=== PATIENT | female | born 1945 | race Caucasian/White ===

== ENCOUNTER → 2016-06-21 | Outpatient (CLI) | payer MEDICARE ==
[~2016-06-21] MED LIST: ALBU8.5H3 IH; ALEN70TA5 PO; ASPI81TA52 PO; ATEN-94 PO; CHOL500016 PO; CYAN10002 IJ; FEXO180T72 PO; ISOS60TA2 PO; LEVO500T34 PO; METO50TA10 PO; NITR0.4T8 SL; OMEP40CA6 PO; VENL75CA PO
--- NOTE | 2016-06-25 16:31 | DIREP ---
PROCEDURE: BONE DENSITY PERIPHERAL COMPARISON: [facility], CR, BONE DENSITY, 12/23/2013, 04:15 PM. INDICATIONS: OSTEOPOROSIS TECHNIQUE: A dual photon bone densitometry was performed. FINDINGS: The bone mineral density as measured from L1 through L4 is 0.923 g/ cm2. The standard deviation of the T-score is-2.2. The bone mineral density in the left femoral neck is 0.826 g/cm2. The standard deviation of the T-score is - 1.5. The bone mineral density in the right femoral neck is 0.841 g/cm2. The standard deviation of the T-score is -1.6. However, the bone mineral density in the left Wards triangle is 0.552 g/cm2. The standard deviation of the T-score is -2.8. Based upon these values, the patient likely has osteoporosis, because the Wards triangle is a more sensitive indicator of the bone mineral density. The 10-year FRAX probability is as follows: The patient has 2 percent chance of an insufficiency hip fracture over the next 10 years. The patient has a 9.9 percent chance of a major osteoporotic fracture over the next 10 years. CONCLUSION: 1. Osteoporosis. Bone mineral density as above. Dictated by: Foreign Huntre MD on 06/21/2016 at 02:31 PM Typed by: RIAN on 06/22/2016 at 02:47 PM D
== END | disposition home or self-care (01) ==
LOC: BD 13:38
PROVIDERS: ATTEND Physician Assistant Medical
DX: M81.0 Age-related osteoporosis without current pathological fracture (principal)
CPT/HCPCS: 77080

== ENCOUNTER → 2016-12-28 | Outpatient (CLI) | payer MEDICARE ==
[~2016-12-28] MED LIST changes: -ALBU8.5H3 IH; +ALBU8.5H7 IH; -LEVO500T34 PO; +LEVO500T51 PO; +METO-237 PO; -METO50TA10 PO; +NITR0.4T26 SL; -NITR0.4T8 SL
--- NOTE | 2016-12-28 18:41 | DIREP ---
PROCEDURE:MRI JOINT LOWER EXTREMITY-LT W/O COMPARISON:None. INDICATIONS:LEFT KNEE INSTABILITY, LEFT KNEE PAIN TECHNIQUE:A complete multi-planar MRI was performed. FINDINGS: The anterior and posterior cruciate ligaments are intact. The medial and fibular collateral ligaments are intact, as are the popliteus tendon, biceps femoris tendon and iliotibial band. The extensor mechanism is intact. The medial and lateral menisci appear intact. Articular cartilage appears relatively preserved within the medial and lateral femorotibial compartments. There is superficial cartilage irregularity along the lateral patellar facet with suspected focal full-thickness chondral fissure. No suspicious bone marrow edema to suggest fracture. Small joint effusion. No popliteal cyst. Edema and fluid signal within the inferior medial retinaculum, suggesting grade 2 sprain. Mild subcutaneous edema is also noted anterior to the proximal tibia. CONCLUSION: 1. Intact menisci, cruciate and collateral ligaments. Subtle irregularity of the patellar articular cartilage as above. Remainder of the articular cartilage appears relatively preserved for the patient's age. 2. Edema about the inferior medial retinaculum, suggesting grade 2 sprain. Please correlate for the site of reported pain. 3. Small joint effusion with mild subcutaneous edema anterior to the proximal tibia. Dictated by: Carmine Cormier M.D. On 12/28/2016 at 06:15 PM
== END | disposition home or self-care (01) ==
LOC: MRI 16:01
DX: M25.362 Other instability, left knee (principal); R60.0 Localized edema
CPT/HCPCS: 73721

== ENCOUNTER → 2017-01-01 | Outpatient (CLI) | payer MEDICARE ==
--- NOTE | 2017-01-01 13:52 | DIREP ---
PROCEDURE:US SOFT TISSUE COMPARISON:None. INDICATIONS:L98.9 DISORDER OF TISSUE TECHNIQUE:Sonography of the anterior left neck cervical soft tissue was performed using grayscale and color Doppler imaging about a site of palpable enlargement/abnormality. FINDINGS: MASSES:Juxtaposed between the internal jugular vein and carotid there is an approximately 1.2 x 2.7 x 3.0 cm hypervascular heterogenous mass that is not fixed per the hone operator. Findings are nonspecific, but may indicate carotid body tumor. Cannot exclude hematoma/pseudoaneurysm , suppurative lymph node, or atypical abscess. Recommend follow-up contrast enhanced MRI and MRA of the neck. FLUID COLLECTIONS:None. OTHER:Negative. CONCLUSION:Heterogenous mixed echogenicity mass with hypervascularity. 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 Differential considerations as above. Recommend contrast-enhanced MRI and MRA of the neck. Dictated by: Nicola Winters DO on 01/01/2017 at 01:47 PM
== END | disposition home or self-care (01) ==
LOC: RAD 13:00
PROVIDERS: ATTEND Surgery
DX: L98.9 Disorder of the skin and subcutaneous tissue, unspecified (principal); M79.89 Other specified soft tissue disorders
CPT/HCPCS: 76882

== ENCOUNTER → 2017-01-31 | Outpatient (CLI) | payer MEDICARE ==
--- NOTE | 2017-02-01 09:03 | DIREP ---
PROCEDURE:MRI NECK W&W/O COMPARISON:[facility], US, US SOFT TISSUE, 01/01/2017, 01:09 PM. INDICATIONS:LEFT UPPER NECK MASS TECHNIQUE:A variety of imaging planes and parameters were utilized for visualization of suspected pathology. Images were performed without and with intravenous gadolinium contrast. FINDINGS: NASOPHARYNX:Fossae of Rosenmuller and torus tubarius are symmetric. ORAL CAVITY:No visible mass. The base of the tongue is symmetric bilaterally. OROPHARYNX:No suspicious abnormality of the tonsillar soft tissues. HYPOPHARYNX:No appreciable mass or abnormal fluid collection. LARYNX:The vocal cords are symmetric and without appreciable mass. SINUSES:Minimal mucosal thickening within imaged maxillary sinuses bilaterally. NECK GLANDS:There is asymmetric enlargement and increased T2 signal within the left submandibular gland. This measures approximately 2.4 x 1.3 cm in AP and transverse dimensions, as compared to the contralateral normal appearing right submandibular gland which measures approximately 1.7 x 0.8 cm in AP and transverse dimensions at a similar level. The left submandibular gland measures approximately 4.1 cm in cranial caudal dimension while the right submandibular gland measures approximately 3.5 cm in craniocaudal dimension. The increased T2 signal is fairly homogeneous with fairly homogeneous subtle increased enhancement following contrast administration. The parotid glands are symmetric bilaterally. The thyroid gland appears grossly unremarkable. LYMPH NODES:No enlarged cervical lymph nodes appreciated. VASCULATURE:No gross abnormality. BONES:Mild degenerative changes of the cervical spine with posterior disc osteophyte complexes at C4-C5, C5-C6 and C6-C7. This does appear to result in at least mild spinal stenosis at C4-C5. OTHER:Apparent interstitial thickening and scarring within the imaged lung apices. Please note that the lungs are poorly evaluated by MRI. CONCLUSION: 1. Mild asymmetric enlargement and increased T2 signal within the left submandibular gland. There is associated subtle increased enhancement when compared to the contralateral right submandibular gland. The overall MR appearance is fairly symmetric, favoring inflammatory or potentially infectious etiology. Underlying mass would be considered less likely given the homogeneity. Please note that the heterogeneity seen on the previous ultrasound is less apparent by MR and may reflect interval improvement. Recommend continued sonographic follow-up to ensure complete resolution. No suspicious cervical lymphadenopathy. 2. Minimal mucosal thickening within the maxillary sinuses. 3. Additional findings as above. Dictated by: Carmine Cormier M.D. On 02/01/2017 at 08:25 AM
== END | disposition home or self-care (01) ==
LOC: MRI 14:31
PROVIDERS: ATTEND Surgery
DX: J32.0 Chronic maxillary sinusitis (principal); R22.1 Localized swelling, mass and lump, neck
CPT/HCPCS: 36415; 70543; 82565; A9579

== ENCOUNTER → 2017-02-01 | Outpatient (CLI) | payer MEDICARE ==
--- NOTE | 2017-02-03 10:38 | DIREP ---
PROCEDURE: MRA NECK W/CONTRAST COMPARISON: [facility], US, US SOFT TISSUE, 01/01/2017, 01:09 PM. [facility], MR, MRI ORBIT FACE & NECK W&W/O, 2016, 04:37 PM. INDICATIONS: neck mass TECHNIQUE: MR angiography was performed without and with intravenous gadolinium, yielding 3D reconstructed images of the carotid and vertebral arteries. FINDINGS: RIGHT CAROTID SYSTEM: The right common and imaged right internal carotid artery are widely patent. LEFT CAROTID SYSTEM: The left common and imaged left internal carotid artery are widely patent. VERTEBRAL ARTERIES: The vertebral arteries arise normally from the subclavian arteries bilaterally. Vertebral arteries appear widely patent bilaterally. ARCH: Standard 3 vessel aortic arch. OTHER: Please refer to the dedicated MRI of the neck. CONCLUSION: 1. Carotid and vertebral arteries are widely patent bilaterally. 2. Please refer to the dedicated MRI of the neck for findings regarding the soft tissues. Dictated by: Carmine Cormier M.D. On 02/01/2017 at 12:51 PM EALTHChristin
== END | disposition home or self-care (01) ==
LOC: RAD 10:10
PROVIDERS: ATTEND Surgery
DX: R22.1 Localized swelling, mass and lump, neck (principal); I77.89 Other specified disorders of arteries and arterioles
CPT/HCPCS: 70548; A9579

== ENCOUNTER → 2018-02-09 | Outpatient (CLI) | payer MEDICARE ==
--- NOTE | 2018-02-09 11:15 | DIREP ---
PROCEDURE:CT HEAD OR BRAIN W/O CONTRAST COMPARISON:None. INDICATIONS:DISEQUILIBRIUM TECHNIQUE:CT images were created without intravenous contrast. FINDINGS: VENTRICLES:The ventricles are normal in size and configuration. CEREBRUM:There are low-density changes in the periventricular white matter. CEREBELLUM:Negative. BRAINSTEM:Negative. BASAL CISTERNS:Negative. HEMORRHAGE:No MASS LESION:No ACUTE INFARCT:No SKULL:Normal. SINUSES:Normal. OTHER:None CONCLUSION: 1. No acute abnormalities. 2. Microvascular ischemic white matter changes. Dictated by: Vladislav Diaz M.D. on 02/09/2018 at 11:11 AM
--- NOTE | 2018-02-09 13:09 | DIREP ---
PROCEDURE:US DOPPLER CAROTID BILATERAL COMPARISON:US, US DOPPLER CAROTID BILATERAL, 01/12/2015, 04:49 PM. [facility], CT, CT HEAD BRAIN W/O CONTRAST, 02/09/2018, 10:50 AM. INDICATIONS:TIA TECHNIQUE:Sonographic evaluation of carotid arteries was performed together with grayscale, color-flow, and spectral analysis. FINDINGS: PEAK FLOW VELOCITIES (cm/sec) RIGHT CCA: PROX:52.6 cm/s DIST:32.8 cm/s RIGHT ICA: PROX:37.9 cm/s MID:36.6 cm/s DIST:44.1 cm/s RIGHT ECA:29.7 cm/s RIGHT ICA/CCA:1.3 RIGHT VERTEBRAL:41.4 cm/s; Antegrade IMAGES:There is noncalcified plaque. LEFT CCA: PROX:64.4 cm/s DIST:40.0 cm/s LEFT ICA: PROX:31.8 cm/s MID:68.6 cm/s DIST:54.9 cm/s LEFT ECA:34.3 cm/s LEFT ICA/CCA:1.7 LEFT VERTEBRAL:32.3 cm/s; Antegrade IMAGES:There is calcified irregular plaque. CONCLUSION:No hemodynamically significant stenosis of the right internal carotid artery. Critical 99% stenosis of the left internal carotid artery, may need correlation with CTA. Stable bilateral thyroid nodules. Diameter Stenosis (%)ICA Peak Systolic Velocity (cm/s)ICA/CCA RatioNormal<125<2.0<50<125<[id number]>2-470 to near occlusion>230>4J Ultrasound Med 2005; 24:2985-2387 Dictated by: LALA Physician on 02/09/2018 at 12:50 PM ld
== END | disposition home or self-care (01) ==
LOC: CT 10:32
DX: I65.22 Occlusion and stenosis of left carotid artery (principal); G93.89 Other specified disorders of brain; E87.8 Other disorders of electrolyte and fluid balance, not elsewhere classified; E04.2 Nontoxic multinodular goiter; Z86.73 Personal history of transient ischemic attack (TIA), and cerebral infarction without residual deficits
CPT/HCPCS: 70450; 93880

== ENCOUNTER → 2018-02-22 | Outpatient (CLI) | payer MEDICARE ==
[~2018-02-22] MED LIST changes: -ALEN70TA5 PO; +ALEN70TA6 PO
--- NOTE | 2018-02-22 17:15 | DIREP ---
PROCEDURE:CTA NECK COMPARISON:MR, MRA NECK W/CONTRAST, 02/01/2017, 11:39 AM. INDICATIONS:I65.22 OCCLUSION AND STENOSIS OF LEFT CAROTID ARTERY TECHNIQUE:After obtaining the patient's consent, CTA images of the neck were obtained without and with non-ionic intravenous contrast material. Multi-planar reformatted/3-D images were created to optimize visualization of vascular anatomy. FINDINGS: AORTIC ARCH:Scattered atherosclerotic plaque with no hemodynamically significant stenosis.. RIGHT CAROTID SYSTEM:Unremarkable. LEFT CAROTID SYSTEM:Unremarkable. VERTEBRAL ARTERIES: Unremarkable. NECK TISSUES:Unremarkable. LUNGS:Unremarkable. MEDIASTINUM:Unremarkable. BONE:Fluid levels in the right and left maxillary sinuses and mild mucosal thickening in the maxillary and ethmoid sinuses bilaterally. In the proper clinical setting, these findings could represent acute sinusitis. CONCLUSION: 1. Normal CT angiography of the neck and head. No hemodynamically significant stenosis. 2. Mild mucosal thickening in the ethmoid and maxillary sinuses bilaterally with fluid levels in the maxillary sinuses bilaterally. In the proper clinical setting, this could represent acute sinusitis. 3. Scattered atherosclerotic plaque in the visualized aortic arch with no hemodynamically significant stenosis. Dictated by: Avinash Reyes M.D. on 02/22/2018 at 05:08 PM
== END | disposition home or self-care (01) ==
LOC: RAD 14:25
DX: I70.0 Atherosclerosis of aorta (principal)
CPT/HCPCS: 36415; 70498; 82565; Q9965

== ENCOUNTER → 2020-04-20 | Outpatient (CLI) | payer MEDICARE ==
[~2020-04-20] MED LIST changes: -ALEN70TA6 PO; +ALEN70TA76 PO; -ISOS60TA2 PO; +ISOS60TA57 PO; +OMEP40CA41 PO; -OMEP40CA6 PO
[2020-04-20] MEDS: LEXISCAN IV ONE (15:00)
--- NOTE | 2020-04-20 22:11 | STRESS ---
DATE OF SERVICE: 04/20/2020 INDICATION: Chest pain. Baseline EKG shows normal sinus rhythm with poor R-wave progression and nonspecific ST-T wave changes. Stress EKG shows sinus tachycardia, unchanged from baseline. At the end of recovery, EKG shows sinus tachycardia, unchanged from baseline. Baseline blood pressure is 155/100 and remained the same during stress. At recovery, the blood pressure is 151/101. Baseline heart rate is 88 beats per minute, but cora to 107 beats per minute during stress. At the end of recovery, the heart rate is noted to be 101 beats per minute. Blood pressure and heart rate are appropriate for stress. There were no significant symptoms noted during stress. There were no arrhythmias noted during stress. EKG portion of stress test is negative for myocardial ischemia. Nuclear images reveal homogeneous tracer distribution across all wall segments with no evidence of myocardial ischemia or infarction. Nuclear images were obtained with the rest dose of 9.89 mCi technetium 99 sestamibi and a stress dose of 32.6 mCi technetium 99 sestamibi. Left ventricular ejection fraction is noted to be 80%. EDV is 11 mL, ESV is 2 mL. The left ventricle is normal in size. Gated motion images shows normal wall motion across all segments of the left ventricle. TID is 1.46. There is no evidence of diaphragmatic attenuation artifact. IMPRESSION: 1. Normal myocardial perfusion imaging with no evidence of myocardial ischemia or infarction. 2. Left ventricular ejection fraction of 80%. 3. This is a negative study. ROCÍO CASTELLANOS D.O. DR: BO/juanita JOB# [id number]
== END | disposition home or self-care (01) ==
LOC: RAD 10:19
PROVIDERS: ATTEND Internal Medicine Interventional Cardiology
DX: R00.0 Tachycardia, unspecified (principal); R07.9 Chest pain, unspecified
CPT/HCPCS: 78452; 93017; A9500; J2785

== ENCOUNTER → 2020-04-27 | Outpatient (CLI) | payer MEDICARE ==
--- NOTE | 2020-04-27 21:28 | PRP ---
DATE OF PROCEDURE: 04/27/2020 ARTERIAL DOPPLER ULTRASOUND INDICATION FOR PROCEDURE: Intermittent claudication. RIGHT LOWER EXTREMITY: The right common femoral artery has a peak systolic velocity of 88 cm/sec with triphasic waveforms. The right profunda femoris artery has a peak systolic velocity of 35 cm/sec with biphasic waveforms. Biphasic waveforms are visualized in the right superficial femoral artery, the right popliteal artery and the right posterior tibial artery. The maximum peak systolic velocity of the right SFA is noted to be 53 cm/sec. The maximum peak systolic velocity of the right popliteal artery is 51 cm/sec. The maximum peak systolic velocity of the right posterior tibial artery 68 cm/sec. The right anterior tibial artery has a peak systolic velocity of 71 cm/sec with biphasic waveforms seen in the proximal and distal segments and triphasic waveforms seen in the mid segment. The right lower extremity ankle-brachial index is 1.1. LEFT LOWER EXTREMITY: The left common femoral artery has biphasic waveforms with a peak systolic velocity of 86 cm/sec. The left profunda femoris artery has monophasic waveforms with a peak systolic velocity of 84 cm/sec. The left SFA has triphasic waveforms in the proximal and mid segment and biphasic waveform in the distal segment with a peak systolic velocity of 69 cm/sec. The left popliteal artery has triphasic waveforms in the proximal segment and biphasic waveform in the distal segment with a peak systolic velocity of 50 cm/sec. Biphasic waveform is visualized in the left posterior tibial artery as well as the left anterior tibial artery. Maximum peak systolic velocity of the left posterior tibial artery is 74 cm/sec and that of the left anterior tibial artery is 65 cm/sec. The left lower extremity ankle-brachial index is 1.1. IMPRESSION: 1. There is no evidence of hemodynamically significant stenosis in the right lower extremity. 2. There is no evidence of hemodynamically significant stenosis in the left lower extremity. 3. Bilateral ABIs are noted above. ROCÍO CASTELLANOS D.O. DR: BO/juanita JOB# [id number]
== END | disposition home or self-care (01) ==
LOC: RAD 14:07
PROVIDERS: ATTEND Internal Medicine Interventional Cardiology
DX: I70.213 Atherosclerosis of native arteries of extremities with intermittent claudication, bilateral legs (principal)
CPT/HCPCS: 93922; 93925

== ENCOUNTER → 2020-04-30 | Outpatient (CLI) | payer MEDICARE ==
--- NOTE | 2020-04-30 19:39 | PCM.ECHO ---
APPROVED REPORT EXAM: Comprehensive 2D, Doppler, and color-flow Echocardiogram. Patient Location: OUT-PATIENT Indications Dizziness and Vertigo Dizziness & giddiness 2D Dimensions LVOT Diameter 2.18 (1.8-2.4cm) LVEF(%) 53.03 (>50%) M-Mode Dimensions RVDd 0.60 (2.1-3.2cm) Left Atrium(MM) 3.15 (2.5-4.0cm) IVSd 0.70 (0.7-1.1cm) Aortic Root 2.65 (2.2-3.7cm) LVDd 5.15 (4.0-5.6cm) Aortic Cusp Exc 1.85 (1.5-2.0cm) PWd 0.45 (0.7-1.1cm) MV EPSS 1.95 (<0.5cm) IVSs 1.20 cm FS (%) 37.25 % LVDs 3.20 (2.0-3.8cm) ESV(Teich) 42.08 ml PWs 1.05 cm LVEF(%) 66.89 (>50%) Volumes Biplane 2D LV Volumes Biplane 2D LA Volumes LVEDv A4C 56.56 mL LA ESV Index LVESv A4C 26.57 mL Aortic Valve AoV Peak Kasi. 0.90 m/s AoV VTI 17.80 cm AO Peak GR. 3.20 mmHg AO Mean GR. 2.05 mmHg LVOT VTI 23.24 cm LVOT Peak Kasi. 0.82 m/s ALBERTINA(VTI)/BSA 4.88 cm2/m2 ALBERTINA (VTI) 4.88 cm2 Mitral Valve MV E Velocity 0.85m/s MR Peak Gr. 17.35mmHg MV A Velocity 1.00m/s TDI Lateral E' P. V 0.08m/s Medial E' P. V 0.06m/s Pulmonary Valve PV Peak Velocity 0.85m/s PV Peak Grad. 2.85mmHg RVOT VTI 14.16cm Tricuspid Valve TR P. Velocity 1.90m/s RAP ESTIMATE 10.00mmHg TR Peak Gr. 14.65mmHg RVSP 24.65mmHg LEFT VENTRICLE The left ventricle is normal size. The left ventricular systolic function is normal. The left ventricular ejection fraction is within the normal range. There is normal left ventricular wall thickness. There is normal LV segmental wall motion. There is no ventricular septal defect visualized. No left ventricle thrombus noted on this study. LVEF is 65-70%. RIGHT VENTRICLE The right ventricle is normal size. The right ventricular systolic function is normal. There is normal right ventricular wall thickness. ATRIA The left atrium size is normal. The right atrium size is normal. The interatrial septum is intact with no evidence for an atrial septal defect. AORTIC VALVE The aortic valve is normal in structure. There is no aortic valvular stenosis. Mild aortic regurgitation. There is no aortic valvular vegetation. MITRAL VALVE The mitral valve is normal in structure. There is no mitral valve stenosis. Mild mitral regurgitation. There is no evidence of mitral valve vegetations. TRICUSPID VALVE The tricuspid valve is normal in structure. There is no tricuspid valve stenosis. Mild tricuspid regurgitation. PULMONIC VALVE Pulmonic valve is not well visualized. There is no pulmonic valvular stenosis. There is no pulmonic valvular regurgitation. GREAT VESSELS The aortic root is normal in size. Pulmonary artery is not well visualized. Aortic arch is not well visualized. IVC is normal in size. PERICARDIUM There is no pericardial effusion. There is no pleural effusion. Other Information Study Quality: Fair <Conclusion> The left ventricular systolic function is normal. LVEF is 65-70%. Mild aortic regurgitation. Mild mitral regurgitation. Mild tricuspid regurgitation. Electronically signed by : ROCÍO CASTELLANOS. 04/30/2020 19:39:01
== END | disposition home or self-care (01) ==
LOC: RT 13:20
PROVIDERS: ATTEND Internal Medicine Interventional Cardiology
DX: I08.3 Combined rheumatic disorders of mitral, aortic and tricuspid valves (principal); R42 Dizziness and giddiness; Q25.49 Other congenital malformations of aorta
CPT/HCPCS: 93306

== ENCOUNTER → 2020-09-15 | Outpatient (CLI) | payer MEDICARE ==
[~2020-09-15] MED LIST changes: -OMEP40CA41 PO; +OMEP40CA8 PO
--- NOTE | 2020-09-15 19:32 | DIREP ---
PROCEDURE:CT SOFT TISSUE NECK W/CONTRAST COMPARISON:None. INDICATIONS:R22.1 MASS, LUMP OR SWELLING LOCAL SUPRFICIAL SWEELING TECHNIQUE:CT images were created with intravenous contrast material. Sagittal and coronal reconstructions are performed. FINDINGS: NASOPHARYNX:Normal. Fossae of Rosenmuller and torus tubarius are symmetric. ORAL CAVITY:Normal. No visible mass. OROPHARYNX:Normal. Faucial and lingual tonsils are symmetric. HYPOPHARYNX:Normal. No mass or other visible lesion. LARYNX:Normal. The vocal cords are symmetric and without mass. SINUSES:Normal. Limited views show no significant fluid or mucosal thickening. NECK GLANDS:Asymmetry of the submandibular glands with the left gland larger than the right. There are no stones seen within the left submandibular gland or in the expected course of Alex's duct. LYMPH NODES:Normal. No pathological-appearing or enlarged lymph nodes. SKULL BASE:Normal. Foramina are symmetric without bony erosion. VASCULATURE:Arterial calcifications. BONES:Disc narrowing C5-6 with anterior osteophyte formation at this level. OTHER:Centrilobular and paraseptal emphysema. CONCLUSION: 1. Asymmetry of the submandibular glands with left gland larger than the right. Sialadenitis cannot be excluded. There are no stones identified. 2. Centrilobular and paraseptal emphysema. Dictated by: Rafael Farah M.D. on 09/15/2020 at 07:25 PM
== END | disposition home or self-care (01) ==
LOC: RAD 11:24
PROVIDERS: ATTEND Surgery
DX: K11.8 Other diseases of salivary glands (principal); R22.1 Localized swelling, mass and lump, neck; J43.2 Centrilobular emphysema; J43.8 Other emphysema; M48.02 Spinal stenosis, cervical region; M25.78 Osteophyte, vertebrae
CPT/HCPCS: 36415; 70491; 82565; Q9965

== ENCOUNTER → 2020-10-08 | Outpatient (CLI) | payer MEDICARE ==
--- NOTE | 2020-10-08 21:13 | DIREP ---
PROCEDURE:CT CHEST ABDOMEN PELVIS W/CONTRAST COMPARISON:[facility], CT, CT ABD/PELVIS W/ CONTRAST, 08/08/2018, 09:51 AM. [facility], CT, CT-CHEST W/O CONTRAST, 12/23/2013, 04:20 PM. INDICATIONS:UNINTENTIONAL WEIGHT LOSS, COPD, CHRONIC DIARRHEA TECHNIQUE:Axial images were obtained through the chest, abdomen and pelvis during the IV administration of nonionic contrast. No oral contrast was administered. Sagittal and coronal reconstructions were performed from source images. FINDINGS: LUNGS:Severe changes of centrilobular emphysema greatest in the apices. PLEURA:Normal. No mass or effusion. CARDIAC:Overall heart size within normal limits. Coronary artery calcifications. MEDIASTINUM/LIANET:Normal. No mass or adenopathy. CHEST WALL:Normal. No mass or axillary adenopathy. LIVER:There is focally diminished hepatic attenuation adjacent to the falciform ligament typical for focal fatty infiltration. BILIARY:The gallbladder is surgically absent. There is no biliary ductal dilatation. PANCREAS:Normal. No lesion, fluid collection, ductal dilatation, or atrophy. SPLEEN:Normal. No enlargement or focal lesion. ADRENALS:Normal. No mass or enlargement. URINARY TRACT:4 cm simple cyst upper pole right kidney. There are additional tiny cysts scattered throughout both kidneys. 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 The aneurysm at the aortic bifurcation measures approximately 3.2 cm in AP dimension and 3.4 cm in transverse dimension. There is prominent soft plaque and wall calcifications along this portion of the aorta. This has increased in size since previous CT 08/08/2018. RETROPERITONEUM:Normal. No mass or adenopathy. BOWEL/MESENTERY:There appears to be wall thickening of the gastric cardia, consider EGD to exclude underlying mass. No bowel obstruction, free fluid or free air. Diverticulosis of the sigmoid colon without acute diverticulitis. ABDOMINAL WALL:Normal. No mass or hernia. PELVIC ORGANS:Uterus is not visible. Correlate with previous surgeries. BONES:Normal for age. No bony lesion or acute fracture. OTHER:Negative. CONCLUSION: 1. Severe emphysema in the lungs. 2. Wall thickening of the gastric cardia suspicious for mass however differential includes poor distention versus gastritis. Recommend direct visualization. 3. Bilateral renal cysts. 4. Diverticulosis of the colon without acute diverticulitis. 4. 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 Dictated by: Kofi Camarillo M.D. on 10/08/2020 at 09:02 PM
== END | disposition home or self-care (01) ==
LOC: RAD 10:32
PROVIDERS: ATTEND Physician Assistant
DX: J43.2 Centrilobular emphysema (principal); I25.10 Atherosclerotic heart disease of native coronary artery without angina pectoris; N28.1 Cyst of kidney, acquired; I70.0 Atherosclerosis of aorta; Z90.49 Acquired absence of other specified parts of digestive tract
CPT/HCPCS: 71260; 74177; Q9965

== ENCOUNTER 2021-03-11 08:35 | Day surgery (SDC) | payer MEDICARE ==
[2021-03-10 16:02] VITALS: BP 118/76
--- NOTE | 2021-03-10 16:31 | PCM.EKG ---
[facility] Test Date: 2021-03-10 Test Time: 16:29:18 Pat Name: NOHEMI POTTS Department: Room: Gender: F Cooperer: TACOS FINLEY : 1945 Requested By: ROCÍO CASTELLANOS Order Number: [id number] Reading MD: Measurements Intervals [place] Rate: 70 P: 42 W[place]: 136 QRS: 68 QRSD: 78 T: 75 QT: 410 QTc: 442 Interpretive Statements Normal sinus rhythm No previous ECG available for comparison Please click the below link to view image of tracing.
[2021-03-10 16:46] LABS: BASOPHIL # 0.1 10^3/uL (0.0-0.1); BASOPHIL % 0.9 % (0.0-0.2); EOSINOPHIL # 0.4 10^3/uL (0.0-0.2); EOSINOPHIL % 6.2 % (0.0-5.0); LYMPHOCYTES # 2.16 10^3/uL1 (1.0-4.8); LYMPHOCYTES % 31.9 % (24.0-44.0); MEAN CORP HGB 30.3 pg (26-34); MONOCYTES # 0.6 10^3/uL (0.3-0.8); MONOCYTES % 8.4 % (5.0-12.0); NEUTROPHIL # 3.6 10^3/uL (1.8-7.7); NEUTROPHILS % 52.5 % (41.0-85.0); PLATELET COUNT 387 10^3/uL (150-400); RED CELL DISTRIBUTION WIDTH 13.1 % (11.5-14.5)
[2021-03-10 17:03] LABS: CARBON DIOXIDE 25.7 mmol/L (20.0-32)
[~2021-03-11] VITALS: Ht 167.6 cm; Wt 59.0 kg
[~2021-03-11 08:35] MED LIST changes: +ASPI325T14 PO; +BUDE0.25 NEB; +BUSP15TA PO; +GABA100C7 PO; +IPRA3AMP25 IH; +LISI40TA10 PO; +LORA-448 PO; +MECL-95 PO; +MELO7.5T31 PO; +METO10TA83 PO; +NS 1000ML 1,000 ML IV SCH; +NS 1000ML 1,000 ML ONE; +POTA20TA89 PO; +SUBLIMAZE ONE; +VERSED ONE
[2021-03-11 14:48] VITALS: BP 137/85
[2021-03-11 17:45] VITALS: BP 122/76
[2021-03-11 18:00] VITALS: BP 165/71
[2021-03-11 18:15] VITALS: BP 124/81
[2021-03-11 18:30] VITALS: BP 134/83
--- NOTE | 2021-03-11 23:28 | CCLR ---
DATE OF PROCEDURE: 03/11/2021 DICTATOR NAME: ROCÍO CASTELLANOS PROCEDURE PERFORMED: Bi[employer]ik BioMonitor III insertable equipment monitor phototypesetting implantation. INDICATIONS: 1. Cryptogenic stroke. 2. Persistent palpitations. 3. Dizziness/giddiness. 4. Acute ischemic stroke. 5. Personal history of cerebral infarction. PROCEDURE IN DETAIL: The risks, benefits and alternatives of the procedure have been explained to the patient in great detail. The patient wishes to proceed with the procedure. The patient was brought to the cardiac catheterization lab. After sterile preparation and draping, the left pectoral region was anesthetized using approximately 10 mL of 2% lidocaine. An incision was made at the 3rd-4th intercostal space using the blade. A small pocket was created with the implant tool approximately 8 mm under the skin. The FIT OneStep tool was inserted and the BioMonitor III insertable equipment monitor phototypesetting was implanted. Hemostasis was achieved using Dermabond and Steri-Strips. The patient tolerated the procedure well and there were no complications. IMPRESSION: Successful implantation of the Biotronik BioMonitor III insertable equipment monitor phototypesetting. RECOMMENDATIONS: The patient will be discharged home today to follow up with me in the clinic in 2-3 weeks. Bib LEGER D.O. DR: NICOLASA TID: [id number] RECEIPT: [id number]
== END 2021-03-11 18:40 | disposition home or self-care (01) ==
LOC: CCL 08:35
PROVIDERS: ATTEND Internal Medicine Interventional Cardiology
DX: I63.89 Other cerebral infarction (principal); R42 Dizziness and giddiness; R00.2 Palpitations; I25.10 Atherosclerotic heart disease of native coronary artery without angina pectoris; J44.9 Chronic obstructive pulmonary disease, unspecified; I10 Essential (primary) hypertension; E78.2 Mixed hyperlipidemia; F17.210 Nicotine dependence, cigarettes, uncomplicated; F32.9 Major depressive disorder, single episode, unspecified; E78.00 Pure hypercholesterolemia, unspecified; M81.0 Age-related osteoporosis without current pathological fracture; Z79.899 Other long term (current) drug therapy; Z79.01 Long term (current) use of anticoagulants; Z98.890 Other specified postprocedural states; Z82.49 Family history of ischemic heart disease and other diseases of the circulatory system; Z95.5 Presence of coronary angioplasty implant and graft
CPT/HCPCS: 33285; 36415; 80053; 85025; 85610; 85730; 93005; 99152; C1764; J2250; J3010; J7030

== ENCOUNTER → 2021-10-21 | Outpatient (CLI) | payer MEDICARE ==
[~2021-10-21] MED LIST changes: -NS 1000ML 1,000 ML IV SCH; -NS 1000ML 1,000 ML ONE; -SUBLIMAZE ONE; -VERSED ONE
--- NOTE | 2021-10-22 01:44 | PRP ---
DATE OF PROCEDURE: 10/21/2021 DICTATOR NAME: ROCÍO CASTELLANOS DO ARTERIAL DOPPLER ULTRASOUND INDICATION: Intermittent claudication, right lower extremity. FINDINGS: The right common femoral artery has a peak systolic velocity of 81.6 cm per second. Triphasic waveforms are visualized in the right common femoral artery. The right profunda femoris artery has a peak systolic velocity of 74 cm per second with monophasic waveforms seen. The right superficial femoral artery has biphasic waveforms with a peak systolic velocity of 45 cm per second. The right popliteal artery has biphasic waveforms with a peak systolic velocity of 40 cm per second. The right posterior tibial artery has biphasic waveforms with a peak systolic velocity of 45 cm per second. The right anterior tibial artery has biphasic waveforms with a peak systolic velocity of 20 cm per second. The right lower extremity ankle-brachial index is 1.0. Left lower extremity, the left common femoral artery has a peak systolic velocity of 86 cm per second with biphasic waveforms seen. The left profunda femoris artery has biphasic waveforms with a peak systolic velocity of 36.9 cm per second. The left superficial femoral artery has biphasic waveforms with a peak systolic velocity of 46 cm per second. The left popliteal artery has biphasic waveforms with a peak systolic velocity of 51 cm per second. The left posterior tibial artery has biphasic waveforms with a peak systolic velocity of 38.5 cm per second. The left anterior tibial artery has biphasic waveforms with a peak systolic velocity of 43 cm per second. The left lower extremity ankle-brachial index is 1.0. IMPRESSION: 1. There is no evidence of hemodynamically significant stenosis in the right lower extremity. 2. There is no evidence of hemodynamically significant stenosis in the left lower extremity. 3. Bilateral ABIs are within normal limits. Bib LEGER D.O. DR: PRISCILA SILVA: [id number] RECEIPT: [id number]
--- NOTE | 2021-10-22 01:50 | PRP ---
DATE OF PROCEDURE: 10/21/2021 DICTATOR NAME: ROCÍO CASTELLANOS DO VENOUS MAPPING ULTRASOUND INDICATION: Chronic venous insufficiency. RIGHT LOWER EXTREMITY: There is no evidence of significant reflux noted in the right greater saphenous vein or the right small saphenous vein. Both his GSV and SSV are normal sized. There is no evidence of deep venous thrombosis in the right lower extremity. LEFT LOWER EXTREMITY: There is no evidence of significant reflux noted in the left GSV or left SSV. Both the left GSV and SSV are normal sized. There is no evidence of deep venous thrombosis noted. IMPRESSION: 1. The bilateral SSV is normal-sized and does not show significant reflux. 2. The bilateral GSV is normal-sized and does not show significant reflux. 3. There is no evidence of deep venous thrombosis in the bilateral lower extremities. Bib LEGER D.O. DR: PRISCILA TID: [id number] RECEIPT: [id number]
== END | disposition home or self-care (01) ==
LOC: RAD 12:46
PROVIDERS: ATTEND Nurse Practitioner Family
DX: I70.213 Atherosclerosis of native arteries of extremities with intermittent claudication, bilateral legs (principal); I87.2 Venous insufficiency (chronic) (peripheral)
CPT/HCPCS: 93922; 93925; 93970

== ENCOUNTER → 2022-01-03 | Outpatient (CLI) | payer MEDICARE ==
[~2022-01-03] MED LIST changes: +ATOR40TA PO; +DULO60CA8 PO; +GABA300C PO; +METO25TA4 PO; +MIRT-13 PO; +PANT40TA3 PO; +VITAMIN D PO
--- NOTE | 2022-01-03 21:07 | PCM.ECHO ---
APPROVED REPORT EXAM: Comprehensive 2D, Doppler, and color-flow Echocardiogram. Patient Location: OUT-PATIENT Indications Pre-Op Cardiac clearance 2D Dimensions LVOT Diameter 2.01 (1.8-2.4cm) LVEF(%) 60.49 (>50%) M-Mode Dimensions RVDd 2.05 (2.1-3.2cm) Left Atrium(MM) 2.95 (2.5-4.0cm) IVSd 1.00 (0.7-1.1cm) Aortic Root 2.25 (2.2-3.7cm) LVDd 3.05 (4.0-5.6cm) Aortic Cusp Exc 1.85 (1.5-2.0cm) PWd 0.80 (0.7-1.1cm) MV EPSS 0.79 (<0.5cm) IVSs 1.60 cm FS (%) 26.65 % LVDs 2.25 (2.0-3.8cm) ESV(Teich) 17.44 ml PWs 1.00 cm LVEF(%) 53.60 (>50%) Volumes Biplane 2D LV Volumes Biplane 2D LA Volumes LVEDv A4C 48.43 mL LA ESV Index LVESv A4C 19.14 mL Aortic Valve AoV Peak Kasi. 0.90 m/s AoV VTI 20.75 cm AO Peak GR. 3.25 mmHg AO Mean GR. 2.30 mmHg LVOT VTI 18.00 cm LVOT Peak Kasi. 0.78 m/s ALBERTINA(VTI)/BSA 2.74 cm2/m2 ALBERTINA (VTI) 2.74 cm2 Mitral Valve MV E Velocity 0.65m/s MR Peak Gr. 16.65mmHg MV A Velocity 0.90m/s TDI Lateral E' P. V 0.05m/s Medial E' P. V 0.07m/s Pulmonary Valve PV Peak Velocity 0.70m/s PV Peak Grad. 2.10mmHg RVOT VTI 15.00cm Tricuspid Valve TR P. Velocity 2.25m/s RAP ESTIMATE 10.00mmHg TR Peak Gr. 20.77mmHg RVSP 30.77mmHg LEFT VENTRICLE The left ventricle is normal size. The left ventricular systolic function is normal. The left ventricular ejection fraction is within the normal range. There is normal left ventricular wall thickness. There is normal LV segmental wall motion. Stage 1 diastolic dysfunction is present (impaired relaxation pattern). There is no ventricular septal defect visualized. No left ventricle thrombus noted on this study. LVEF is 65-70%. RIGHT VENTRICLE The right ventricle is normal size. The right ventricular systolic function is normal. There is normal right ventricular wall thickness. ATRIA The left atrium size is normal. The right atrium size is normal. The interatrial septum is intact with no evidence for an atrial septal defect. AORTIC VALVE The aortic valve is normal in structure. There is no aortic valvular stenosis. Mild aortic regurgitation. There is no aortic valvular vegetation. MITRAL VALVE The mitral valve is normal in structure. There is no mitral valve stenosis. Mild mitral regurgitation. There is no evidence of mitral valve vegetations. TRICUSPID VALVE The tricuspid valve is normal in structure. There is no tricuspid valve stenosis. Mild to moderate tricuspid regurgitation. There is no tricuspid valve vegetations. PULMONIC VALVE Pulmonic valve is not well visualized. There is no pulmonic valvular stenosis. There is no pulmonic valvular regurgitation. GREAT VESSELS The aortic root is normal in size. Pulmonary artery is not well visualized. Aortic arch is not well visualized. The IVC is normal in size and collapses >50% with inspiration. PERICARDIUM There is no pericardial effusion. There is no pleural effusion. Other Information Study Quality: Fair <Conclusion> The left ventricular systolic function is normal. LVEF is 65-70%. Mild aortic regurgitation. Mild mitral regurgitation. Mild to moderate tricuspid regurgitation. Electronically signed by : ROCÍO CASTELLANOS. 01/03/2022 21:06:26
== END | disposition home or self-care (01) ==
LOC: RAD 12-21 11:14
PROVIDERS: ATTEND Internal Medicine Interventional Cardiology
DX: Z01.818 Encounter for other preprocedural examination (principal); I08.3 Combined rheumatic disorders of mitral, aortic and tricuspid valves
CPT/HCPCS: 93306

== ENCOUNTER 2022-01-20 07:55 | Day surgery (SDC) | payer MEDICARE ==
[2022-01-17 15:20] VITALS: BP 115/88
[2022-01-17 16:46] LABS: MEAN CORP HGB 29.5 pg (26-34); PLATELET COUNT 375 10^3/uL (150-400); RED CELL DISTRIBUTION WIDTH 13.4 % (11.5-14.5)
[2022-01-17 17:48] LABS: CARBON DIOXIDE 27.5 mmol/L (20.0-32)
--- NOTE | 2022-01-17 18:55 | PCM.EKG ---
[facility] Test Date: 2022-01-17 Test Time: 15:49:12 Pat Name: NOHEMI POTTS Department: Room: Gender: F Leaf Stripper: TACOS FINLEY : 1945 Requested By: JUDY PEACOCK Order Number: [id number] Reading MD: Measurements Intervals [place] Rate: 69 P: 53 ME: 168 QRS: 70 QRSD: 80 T: 79 QT: 424 QTc: 454 Interpretive Statements Normal sinus rhythm No previous ECG available for comparison Please click the below link to view image of tracing.
[2022-01-17 19:49] LABS: BAND NEUTROPHILS 1 % (2-6); SEGMENTED NEUTROPHILS 62 % (31-76)
[2022-01-17 19:50] LABS: BASOPHIL 1 % (0-2); EOSINOPHIL 4 % (1-4); LYMPHOCYTE 23 % (25-36); MONOCYTE 9 % (3-9)
[~2022-01-20] VITALS: Ht 167.6 cm; Wt 61.2 kg
[~2022-01-20 07:55] MED LIST changes: +ANCEF 2 GM/D5W 50ML 50 ML IV SCH; +LACTATED RINGERS 1,000 ML IV SCH; +LACTATED RINGERS 1,000 ML ONE; +MARCAINE 0.5% ONE; +NS 250ML 250 ML ONE; +NS 3000ML IRR IR ONE; +SODIUM CHLORIDE IRR BOTTLE IR ONE; +VANCOMYCIN HCL 1 GM ONE; +VANCOMYCIN HCL 1 GM in NS 250ML 250 ML IV ONE
[2022-01-20 07:59] VITALS: BP 150/90
[2022-01-20] MEDS ORDERED: XYLOCAINE 2% 5ML VIAL ONE (11:33)
--- NOTE | 2022-01-20 22:14 | PNH ---
DATE: 01/20/2022 DICTATOR NAME: Rajan Hope MD SUBJECTIVE: The patient is a 76-year-old female who I saw in my office about 6 weeks ago with recurrent swelling and drainage from a right olecranon bursitis. The patient had to have cardiac clearance prior to I and D of her right olecranon bursa. The patient states that she has had no drainage out of the elbow for approximately the last 5 weeks. She has been on doxycycline in the past. The patient reports no pain or fever or chills. The exam today shows that the sinus tract is closed. She has no swelling about the right olecranon bursa and no tenderness. The elbow has normal range of motion. Her white blood cell count is normal and she is afebrile. The patient's surgery, which was supposed to be an I and D of the right olecranon bursa, will be canceled today because the lesion appears to have healed and the patient is asymptomatic. The patient will be discharged and instructed to follow up with my office in the future as needed. Rajan Hope MD DR: EFRAIN/TIMOTHY TID: [id number] RECEIPT: [id number]
== END 2022-01-20 11:52 | disposition home or self-care (01) ==
LOC: SDC 07:55
PROVIDERS: ATTEND Orthopaedic Surgery
DX: M70.21 Olecranon bursitis, right elbow (principal); I10 Essential (primary) hypertension; I25.10 Atherosclerotic heart disease of native coronary artery without angina pectoris; K21.9 Gastro-esophageal reflux disease without esophagitis; J44.9 Chronic obstructive pulmonary disease, unspecified; F32.A Depression, unspecified; E78.00 Pure hypercholesterolemia, unspecified; M19.90 Unspecified osteoarthritis, unspecified site; Z86.73 Personal history of transient ischemic attack (TIA), and cerebral infarction without residual deficits; Z87.891 Personal history of nicotine dependence; Z90.49 Acquired absence of other specified parts of digestive tract; Z98.890 Other specified postprocedural states; Z90.710 Acquired absence of both cervix and uterus; Z95.5 Presence of coronary angioplasty implant and graft; Z82.49 Family history of ischemic heart disease and other diseases of the circulatory system; Z79.899 Other long term (current) drug therapy; Z53.8 Procedure and treatment not carried out for other reasons
CPT/HCPCS: 93005; 80053; 85027; 85007; 36415; J7050; J7120; A4217 ×2; J2001; J3490; J3370